=== PATIENT | male | born 1940 | race Caucasian/White ===

== ENCOUNTER 2017-07-17 19:46 | Inpatient (IN) | payer OTHER ==
[~2017-07-17] VITALS: Ht 180.3 cm; Wt 104.3 kg
[2017-07-17] MEDS ORDERED: INDERAL LA80 MG (19:54)
[2017-07-28] MEDS ORDERED: BENZONATATE100 MG PO (11:04)
[2017-07-28] MEDS ORDERED: TUSSIONEX PENN115 ML PO (11:11)
== END 2017-07-28 12:23 | disposition home or self-care (01) | DRG 191 ==
LOC: ER 19:46 → SEC-K 07-18 10:11 → MEDI 07-18 10:11 → SEC-K 07-18 13:07 → MEDI 07-18 13:58
PROC: 3E0F7GC Introduction of Other Therapeutic Substance into Respiratory Tract, Via Natural or Artificial Opening (ICD-10-PCS; principal; 2017-07-18)
PROC: 4A033R1 Measurement of Arterial Saturation, Peripheral, Percutaneous Approach (ICD-10-PCS; 2017-07-18)
PROC: BB24ZZZ Computerized Tomography (CT Scan) of Bilateral Lungs (ICD-10-PCS; 2017-07-18)
PROC: 0BBG3ZX Excision of Left Upper Lung Lobe, Percutaneous Approach, Diagnostic (ICD-10-PCS; 2017-07-24)
PROC: BB24ZZZ Computerized Tomography (CT Scan) of Bilateral Lungs (ICD-10-PCS; 2017-07-25)
DX: J44.1 Chronic obstructive pulmonary disease with (acute) exacerbation (principal); J95.811 Postprocedural pneumothorax; J44.0 Chronic obstructive pulmonary disease with (acute) lower respiratory infection; J20.9 Acute bronchitis, unspecified; I10 Essential (primary) hypertension; R91.1 Solitary pulmonary nodule

== ENCOUNTER 2018-07-05 11:31 | Outpatient (CLI) | payer OTHER ==
[~2018-07-05 11:31] MED LIST: BENZONATATE100 MG PO; INDERAL LA80 MG; TUSSIONEX PENN115 ML PO
== END 2018-07-05 12:03 | disposition home or self-care (01) ==
LOC: RAD 501 11:31
DX: J44.9 Chronic obstructive pulmonary disease, unspecified (principal); I10 Essential (primary) hypertension

== ENCOUNTER 2019-04-13 10:05 | Outpatient (CLI) | payer OTHER | END 2019-04-13 10:09 | disposition home or self-care (01) | LOC: RAD 10:05 | DX: J44.9 Chronic obstructive pulmonary disease, unspecified (principal) ==

== ENCOUNTER 2019-06-26 11:27 | Outpatient (CLI) | payer OTHER | END 2019-06-26 11:29 | disposition home or self-care (01) | LOC: RAD 11:27 | DX: J44.9 Chronic obstructive pulmonary disease, unspecified (principal); M12.89 Other specific arthropathies, not elsewhere classified, multiple sites ==

== ENCOUNTER 2020-12-18 08:44 | Emergency (ER) | payer OTHER ==
[~2020-12-18] VITALS: Ht 180.3 cm; Wt 111.1 kg
[2020-12-18] MEDS ORDERED: COZAAR100 MG (09:05)
[2020-12-18] MEDS ORDERED: LIPITOR20 MG (09:06)
[2020-12-18] MEDS ORDERED: NORVASC10 MG (09:06)
[2020-12-18] MEDS ORDERED: DICLOFENAC POTA50 MG (09:07)
[2020-12-18] MEDS ORDERED: MEDROLPACK PO (12:09)
[2020-12-18] MEDS ORDERED: KETO10TA2 PO (12:24)
== END 2020-12-18 13:00 | disposition home or self-care (01) ==
LOC: ER 08:44
DX: M54.5 Low back pain (principal)

== ENCOUNTER 2021-01-01 22:08 | Emergency (ER) | payer OTHER ==
[~2021-01-01] VITALS: Ht 177.8 cm; Wt 108.9 kg
[~2021-01-01 22:08] MED LIST changes: +COZAAR100 MG; +DICLOFENAC POTA50 MG; +KETO10TA2 PO; +LIPITOR20 MG; +MEDROLPACK PO; +NORVASC10 MG
[2021-01-02] MEDS ORDERED: MOXIFLOXACIN H400 MG PO (04:05)
[2021-01-02] MEDS ORDERED: MUCINEX DM ER1 EAC1 PO (04:05)
[2021-01-02] MEDS ORDERED: PROAIR RESPICL90 MCG IH (04:05)
[2021-01-02] MEDS ORDERED: MEDROLPACK PO (04:05)
== END 2021-01-02 04:51 | disposition home or self-care (01) ==
LOC: ER 22:08
DX: R04.2 Hemoptysis (principal)